=== PATIENT | male | born 1950 | race Caucasian/White ===

== ENCOUNTER 2022-04-05 09:59 | Day surgery (SDC) | payer OTHER ==
[2022-04-05 10:22] VITALS: BMI 21.6
[2022-04-05 11:34] LABS: INR 0.99 (0.83-1.09); PROTHROMBIN TIME (PATIENT) 11.4 SEC (9.7-13.0)
[2022-04-05 11:37] LABS: ACTIVATED PTT 31.1 SECONDS (25.2-36.5)
[2022-04-05 11:42] LABS: ALBUMIN 3.9 g/dl (3.4-5.0); CALCIUM 9.2 mg/dl (8.5-10); CREATININE 1.1 mg/dl (0.55-1.3); TOT PROT 6.7 g/dl (6.4-8.2)
[2022-04-05 11:43] LABS: HEMATOCRIT 42.1 % (35.4-49); HEMOGLOBIN 14.3 G/dL (11.7-16.9); MCH 30.8 pg (25.7-33.7); MEAN CELL VOLUME 90.5 fl (80-96); MEAN PLT VOLUME 9.4 fl (7.5-11.1); PLATELET COUNT 158.1 10^3/uL (134-434); RBC 4.65 10^6/uL (4.00-5.60); RDW 13.8 % (11.9-15.9); WHITE BLOOD COUNT 4.2 10^3/uL (4.0-10.8)
[2022-04-05 12:21] LABS: PLATELET ESTIMATE ADEQUATE
[2022-04-05] MEDS ORDERED: SUCCINYLCHOLINE CHLORIDE 200 MG/10 ML SYRINGE ONE (12:49)
[2022-04-05] MEDS ORDERED: PROPOFOL 20 ML ONE (12:49)
[2022-04-05] MEDS ORDERED: ROCURONIUM BROMIDE 50 MG/5 ML SYRINGE ONE (12:50)
[2022-04-05] MEDS ORDERED: BUPIVACAINE HCL 100 ML ONE ×2 (13:09→13:11)
[2022-04-05] MEDS ORDERED: LIDOCAINE HCL 1%, 10 MG/ML (20ML VIAL) ONE (13:10)
[2022-04-05] MEDS ORDERED: MIDAZOLAM HCL 2 MG/2 ML SINGLE DOSE VIAL ONE (13:48)
[2022-04-05] MEDS ORDERED: NEOSTIGMINE METHYLSULFATE 0.5 MG/1 ML - 10 ML MDV ONE (14:55)
[2022-04-05] MEDS ORDERED: ACETAMINOPHEN 1000 MG/100 ML BAG IVPB ONE (15:10)
[2022-04-05] MEDS ORDERED: ONDANSETRON 4 MG/2 ML VIAL IVPUSH PRN (15:16)
[2022-04-05] MEDS ORDERED: ACETAMINOPHEN INJECTION 100 ML IVPB ONE (15:25)
[2022-04-05] MEDS ORDERED: FENTANYL CITRATE/PF 50 MCG/ML VIAL ONE (15:25)
[2022-04-05] MEDS ORDERED: LACTATED RINGERS SOLUTION 1,000 ML IV SCH (15:30)
[2022-04-05 16:40] VITALS: TEMP 96.8
[2022-04-05 16:45] VITALS: RESP 16
[2022-04-05] MEDS ORDERED: oxyCODONE HCL 5 MG TABLET PO ONE ×2 (17:05→17:06)
[2022-04-05] MEDS ORDERED: oxyCODONE HCL 5 MG TABLET ONE (17:08)
[2022-04-05 17:56] VITALS: BP 130/80
[2022-04-05 20:06] VITALS: PULSE 52
== END 2022-04-05 20:00 | disposition home or self-care (01) ==
LOC: FER 09:59 → FASUSAT 13:09
PROVIDERS: ATTEND Surgery
PROC: 0YU70JZ Supplement Right Femoral Region with Synthetic Substitute, Open Approach (ICD-10-PCS; principal; 2022-04-05 14:13)
DX: K41.30 Unilateral femoral hernia, with obstruction, without gangrene, not specified as recurrent (principal)
CPT/HCPCS: 36415; 71045-TC-FY; 80053; 85027; 85610; 85730; 86850; 86900; 86901; 88302-TC; 88304-TC; 93005; 94760; 99285-25; C9803-CS; U0003; U0005